=== PATIENT | male | born 1940 | race Caucasian/White ===

== ENCOUNTER 2017-03-31 07:23 | Day surgery (SDC) | payer MEDICARE, BC ==
[~2017-03-31] VITALS: Ht 165.1 cm; Wt 63.0 kg
[2017-03-31] VITALS (15 sets, daily range): BP systolic 105–147; BP diastolic 71–86; PULSE 50–65; RESP 16–23; Ht 165.1 cm; Wt 63.0 kg
[~2017-03-31 07:23] MED LIST: AMLO5TAB4 PO; ASPI-664 PO; CILO100T PO; METO25TA7 PO; ROSU20TA PO
[2017-03-31] MEDS ORDERED: DIAZEPAM 5 MG TAB PO SCH (07:30)
[2017-03-31] MEDS ORDERED: SOD CHLORIDE 0.45% 1,000 ML IV SCH (07:30)
[2017-03-31] MEDS ORDERED: FAMOTIDINE 20 MG TAB PO SCH (07:30)
[2017-03-31] MEDS ORDERED: DIPHENHYDRAMINE 50 MG CAP PO SCH (07:30)
--- NOTE | 2017-03-31 08:03 | RADRPT ---
PROCEDURE: XR Chest. CLINICAL INDICATION: Preoperative TECHNIQUE: Single frontal view of the chest was obtained. COMPARISON: 06/23/14 FINDINGS: The heart is within normal limits. The thoracic aorta is calcified. The lungs are clear. There is no pleural effusion or pneumothorax. RPTAT: AA IMPRESSION: No acute disease. Calcified aorta consistent with atherosclerotic disease. .Julio Ash MD, MD Date Time Electronically viewed and signed by .Julio Ash MD, on 03/31/2017 08:03 .S/
[2017-03-31] MEDS ORDERED: METO-429 PO (08:28)
[2017-03-31] MEDS ORDERED: FURO20TA3 PO (08:29)
[2017-03-31] MEDS ORDERED: CLOP75TA27 PO (08:29)
[2017-03-31] MEDS ORDERED: ISOS30TA5 PO (08:30)
[2017-03-31 08:42] LABS: BASOPHILS % 0.6 % (0.0-2.0); EOSINOPHILS # 0.2 10^3/ul (0.0-0.5); EOSINOPHILS % 3.2 % (0.0-7.0); HEMOGLOBIN 15.8 g/dl (14.0-18.0); LYMPHOCYTES % 30.1 % (15.0-51.0); MEAN CORPUSCULAR HEMOGLOBIN 31.5 pg (29.0-33.0); MEAN CORPUSCULAR HGB CONC 32.2 g/dl (32.0-37.0); MEAN CORPUSCULAR VOLUME 97.8 fl (82.0-101.0); MEAN PLATELET VOLUME 9.4 fl (7.4-10.4); MONOCYTE # 0.8 10^3/ul (0.3-0.9); MONOCYTES % 12.3 % (0.0-11.0); NEUTROPHILS % 53.6 % (39.0-77.0); PLATELET COUNT 167 10^3/UL (140-415); RED BLOOD COUNT 5.01 10^6/ul (4.70-6.10); RED CELL DISTRIBUTION WIDTH 13.6 % (11.5-14.5); WHITE BLOOD COUNT 6.5 10^3/ul (4.8-10.8)
[2017-03-31 09:19] LABS: CHOL/HDL RATIO 3.8 RATIO; INR 0.93; PROTIME 12.5 Sec (12.2-14.2)
[2017-03-31 09:20] LABS: PARTIAL THROMBOPLASTIN TIME 25.8 Sec (25.0-35.0)
[2017-03-31 09:21] LABS: CREATININE 0.87 mg/dl (0.61-1.24); POTASSIUM 4.8 mmol/L (3.5-5.1)
[2017-03-31] MEDS ORDERED: HEPARIN 1000 UNITS/ML 10 ML INJ ONE (09:39)
[2017-03-31] MEDS ORDERED: VERAPAMIL 5 MG INJ ONE (09:40)
[2017-03-31] MEDS ORDERED: NITROGLYCERIN (IC) 100 MCG/ML INJ ONE (09:40)
[2017-03-31] MEDS ORDERED: IODIXANOL LOCM 100 ML BTL ONE (09:40)
[2017-03-31] MEDS ORDERED: MIDAZOLAM 1 MG/ML 2 ML INJ ONE (09:40)
[2017-03-31] MEDS ORDERED: HEPARIN 1000 UNITS/NS (A-LINE) 1,000 ML ONE (09:40)
[2017-03-31] MEDS ORDERED: LIDOCAINE 1% (MDV) 20 ML INJ ONE (09:40)
[2017-03-31] MEDS ORDERED: FENTAnyl 50 MCG/ML VIAL ONE (09:40)
[2017-03-31] MEDS ORDERED: SOD CHLORIDE 0.9% 1,000 ML IV SCH (10:43)
[2017-03-31] MEDS ORDERED: ACETAMINOPHEN 325 MG TAB PO PRN (11:00)
[2017-03-31] MEDS ORDERED: morphine 2 MG INJ IV PRN (11:00)
--- NOTE | 2017-03-31 11:16 | OPR ---
Date/Time of Note Date/Time of Note DATE: 03/31/17 TIME: 11:13 Operative Report Preoperative Diagnosis 1.Chest pain 2.Abnormal MPI 3.H/O stent Postoperative Diagnosis 1.Non-obstructive cad 2. patent LCX and RCA stents Operation/Procedure Performed 1.C 2.Coronary angiography 3.Moderate concious sedation x 30 minutes Surgeon: COLT PERALTA Anesthesia Type: moderate sedation Estimated Blood Loss: none Specimen: none Complications: no COLT PERALTA Mar 31, 2017 11:15
--- NOTE | 2017-03-31 12:18 | CARRPT ---
DATE OF PROCEDURE: 03/31/2017 PROCEDURE: 1. Left heart catheterization. 2. Coronary angiography. 3. Left ventriculogram. 4. 30 minutes of moderate conscious sedation. ATTENDING PHYSICIAN: Dr. Joel Way. REFERRING PHYSICIAN: Self-referred. INDICATION: Chest pain, dyspnea on exertion, positive stress test for anterior and inferior ischemia, high-risk markers for cardiovascular events. ANESTHESIA: Conscious and local. BRIEF HISTORY: Mr. Kwon is a 76-year-old male, well known to myself as a primary office patient with a history of hypertension, dyslipidemia, coronary artery disease, status post multiple PTCA and stent placement procedures, most recently 2010 to the right coronary artery. He now presents with recurrent episodes of substernal chest pain, dyspnea on exertion and positive stress test findings. PROCEDURE IN DETAIL: After informed consent was obtained, the patient was brought to [facility] where his right radial area was prepped and draped in the usual sterile fashion. 2 percent lidocaine was infiltrated in the right radial area in order to achieve adequate local anesthesia. Using modified Seldinger tecnique, the right radial artery was cannulated and through a 6-Latvian arterial sheath, a 6- Latvian JL3.5 catheter were used to cannulate the left main coronary ostium. With contrast injection, multiple views of the left coronary arterial system were obtained. JL35 was removed over a guidewire and a JR4 was used to cannulate the right coronary artery ostium. With contrast injection, multiple views of the right coronary arterial system were obtained. JR4 was removed over a guidewire and a 6-Latvian pigtail was passed down the ascending aorta into LV. Left ventricular end-diastolic pressure and pullback across the aortic valve to assess for significant gradient, which there was not and removed after performing left angiogram with power injection. Subsequently, this completed the procedure. The patient's sheath was removed. TR band was applied. There were no noted complications. FINDINGS: 1. Coronary angiography: Left main: 4 mm, no significant stenosis. Circumflex proximally is a 3 mm vessel and its midportion has a focal 20 percent stenosis. In the mid distal portion of the circumflex, there was a widely patent stent with no significant in-stent restenosis. There are 2 mid branching obtuse marginals, each approximately 2 to 2.25 mm with the more superior branch having a 30 percent ostial stenosis. There exists a ramus branch, subcentimeter vessel with an ostial 30 percent to 40 percent stenosis. The LAD proximally is a 3 mm vessel and has an ostial 30 percent stenosis. In the mid portion of the LAD, there is a focal 40 percent stenosis. The remainder of the LAD artery is free of significant focal stenoses. It goes round the apex. There are 2 mid distal branching diagonals with the distal branch diagonal having an ostial 30 percent stenosis. The right coronary artery proximally is a 3 mm vessel and has a long stented zone in its mid portion, which is widely patent with in-stent restenoses approximately 20 percent. The mid distal portion of the right coronary artery has approximately a 30 percent to 40 percent stenosis. It is a dominant vessel. It gives off a 2 mm PDA and a 2 mm posterolateral branch each with no significant focal stenosis. 2. Left ventriculogram: Left ventricular ejection fraction is preserved at 55 percent to 60 percent. Left ventricular end- diastolic pressure of 26. No significant aortic stenosis by gradient, 1+ mitral regurgitation. TOTAL FLUOROSCOPY TIME: 4.6 minutes. TOTAL CONTRAST: 75 cc. IMPRESSION: 1. Ulio-ev-lwowmddy nonobstructive coronary artery disease. 2. Widely patent circumflex and right coronary artery stents. 3. Preserved left ventricular systolic function. 4. Moderately elevated left heart filling pressures. 5. No significant aortic stenosis by gradient. 6. 1+ mitral regurgitation. RECOMMENDATIONS: 1. In light of procedure findings, at this time, would maximize medical management. 2. Aggressive risk factor reduction. 3. The patient would likely benefit from gentle diuresis given elevated LVEDP. 4. Patient will admitted to the same day surgery center for post catheterization observation with probable discharge later this afternoon. Dictated By: Cayden Russo /madeline/stephen /Document#: [id number]
--- NOTE | 2017-04-02 13:41 | RADRPT ---
Vent Rate: 59 bpm RR Interval: [address] Interval: 134 msec QRS Duration: 82 msec QT Interval: 406 msec QTC Interval: 401 msec P-R-T [place]: 80 - 65 - 68 degrees Sinus bradycardia Otherwise normal ECG Electronically Signed By: mOar Rojas [id number]
== END 2017-03-31 14:45 | disposition home or self-care (01) ==
LOC: SDS 07:23
PROVIDERS: ATTEND Internal Medicine
DX: I25.10 Atherosclerotic heart disease of native coronary artery without angina pectoris (principal); I34.0 Nonrheumatic mitral (valve) insufficiency
CPT/HCPCS: 71010; 80048; 80061; 84478; 85025; 85610; 85730; 93005; 93458; C1769; C1887; J1644; J2250; J3010; Q9967